=== PATIENT | male | born 1970 | race Two or more races ===

== ENCOUNTER 2016-10-16 17:53 | Emergency (ER) | payer OTHER ==
[~2016-10-16] VITALS: Ht 172.7 cm; Wt 81.6 kg
[2016-10-16 18:26] LABS: BASOPHILS % (AUTO) 0.5 % (0.0-2.0); DIFF TOTAL % 100 %; EOSINOPHILS # (AUTO) 0.1 /CMM (0.0-0.7); EOSINOPHILS % (AUTO) 1.8 % (0.0-6.0); HEMATOCRIT 43 % (39-51); HEMOGLOBIN 14.3 g/dL (13.5-17.5); LYMPHOCYTES # (AUTO) 2.3 /CMM (0.8-4.8); LYMPHOCYTES % (AUTO) 42.6 % (20.0-44.0); MEAN CORPUSCULAR HEMOGLOBIN 29 PG (26.0-33.0); MEAN CORPUSCULAR HGB CONC 33 g/dl (31.0-36.0); MEAN CORPUSCULAR VOLUME 86 fL (80-96); MONOCYTES # (AUTO) 0.4 /CMM (0.1-1.30); MONOCYTES % (AUTO) 7.6 % (2.0-12.0); NEUTROPHILS # (AUTO) 2.5 /CMM (1.8-8.9); NEUTROPHILS % (AUTO) 47.5 % (43.0-81.0); PLATELET COUNT (AUTO) 281 /CMM (150-450); RED BLOOD CELL COUNT(AUTO) 4.99 MIL/uL (4.5-6.0); WHITE BLOOD COUNT (AUTO) 5.4 K/uL (4.3-11.0)
[2016-10-16 18:35] LABS: KETONES,URINE Negative (NEGATIVE); LEUKOCYTE ESTERASE ,URINE Trace (NEGATIVE)
[2016-10-16 18:36] LABS: CALCIUM, SERUM 8.4 mg/dL (8.5-10.1); CREATININE 0.9 mg/dL (0.6-1.3); POTASSIUM 3.9 mmol/L (3.5-5.1)
[2016-10-16 18:37] LABS: ADD UA MICROSCOPIC YES
[2016-10-16 18:42] LABS: ALBUMIN 3.8 g/dL (3.4-5.0); BILIRUBIN,DIRECT 0.1 mg/dL (0.0-0.2); BILIRUBIN,TOTAL 0.4 mg/dL (0.2-1.0); INDIRECT BILIRUBIN 0.3 mg/dL (0.0-1.1)
[2016-10-16 19:09] LABS: RBC,URINE NONE SEEN /HPF (0-2); WBC,URINE 2-4/HPF /HPF (0-3)
[2016-10-16 19:10] LABS: ADD URINE CULTURE NO; MUCUS,URINE Few /LPF (None Seen)
[2016-10-16 20:09] VITALS: BP 108/64
== END 2016-10-16 20:10 | disposition home or self-care (01) ==
LOC: ER 17:54
DX: M54.5 Low back pain (principal); J06.9 Acute upper respiratory infection, unspecified; N20.0 Calculus of kidney; F17.210 Nicotine dependence, cigarettes, uncomplicated
CPT/HCPCS: 36415; 74176; 80048; 80076; 81001; 85025; 99285; A4606; Z7610; 81000-TC

== ENCOUNTER 2016-10-26 08:05 | Emergency (ER) | payer OTHER ==
[~2016-10-26] VITALS: Ht 172.7 cm; Wt 79.4 kg
[2016-10-26 08:22] VITALS: BP 125/86
== END 2016-10-26 08:23 | disposition home or self-care (01) ==
LOC: ER 08:07
DX: S29.011A Strain of muscle and tendon of front wall of thorax, initial encounter (principal); Z87.442 Personal history of urinary calculi; X58.XXXA Exposure to other specified factors, initial encounter; Y92.89 Other specified places as the place of occurrence of the external cause; Y93.89 Activity, other specified; Y99.8 Other external cause status
CPT/HCPCS: 99283; A4606; Z7610

== ENCOUNTER 2017-01-31 05:25 | Emergency (ER) | payer BC, OTHER ==
[~2017-01-31] VITALS: Ht 177.8 cm; Wt 83.9 kg
--- NOTE | 2017-01-31 05:35 | NUR ---
to bed 3 ambulatory c/o L flank pain x2 months. pt aaox4 no acute distress noted, resp, even and unlabored. pending er md tellez. pt unable to provide urine sample at this time.
--- NOTE | 2017-01-31 06:12 | NUR ---
chandrakant hedrick at bedside to rosalinda salguero.
[2017-01-31] MEDS ORDERED: HYDROCODONE/APAP 10/325MG 1 EA TABLET PO ONE (06:30)
[2017-01-31] MEDS ORDERED: ONDANSETRON 4 MG TAB.RAPDIS SL ONE (06:30)
--- NOTE | 2017-01-31 06:30 | NUR ---
blood drawn by director of student financial services.
[2017-01-31 06:41] LABS: BASOPHILS % (AUTO) 0.5 % (0.0-2.0); EOSINOPHILS # (AUTO) 0.1 /CMM (0.0-0.7); EOSINOPHILS % (AUTO) 2.4 % (0.0-6.0); HEMATOCRIT 44 % (39-51); HEMOGLOBIN 15.2 g/dL (13.5-17.5); LYMPHOCYTES # (AUTO) 2.1 /CMM (0.8-4.8); LYMPHOCYTES % (AUTO) 36.6 % (20.0-44.0); MEAN CORPUSCULAR HEMOGLOBIN 30 PG (26.0-33.0); MEAN CORPUSCULAR HGB CONC 35 g/dl (31.0-36.0); MEAN CORPUSCULAR VOLUME 86 fL (80-96); MONOCYTES # (AUTO) 0.6 /CMM (0.1-1.30); MONOCYTES % (AUTO) 10.5 % (2.0-12.0); NEUTROPHILS # (AUTO) 2.8 /CMM (1.8-8.9); PLATELET COUNT (AUTO) 235 /CMM (150-450); RDW COEFFICIENT OF VARIATION 12.5 (11.5-15.0); RED BLOOD CELL COUNT(AUTO) 5.16 MIL/uL (4.5-6.0); WHITE BLOOD COUNT (AUTO) 5.7 K/uL (4.3-11.0)
[2017-01-31] MEDS ORDERED: ONDANSETRON 4 MG TAB.RAPDIS ONE (06:59)
[2017-01-31] MEDS ORDERED: HYDROCODONE/APAP 10/325MG 1 EA TABLET ONE (07:00)
[2017-01-31 07:07] LABS: BILIRUBIN,DIRECT 0.1 mg/dL (0.0-0.2); BILIRUBIN,TOTAL 0.7 mg/dL (0.2-1.0); CALCIUM, SERUM 8.6 mg/dL (8.5-10.1); POTASSIUM 4.1 mmol/L (3.5-5.1); TOTAL PROTEIN, SERUM 7.3 g/dL (6.4-8.2)
--- NOTE | 2017-01-31 07:11 | NUR ---
urine sample collected and sent to lab.
[2017-01-31 07:25] LABS: APPEARANCE,URINE CLEAR (CLEAR); BILIRUBIN,URINE NEGATIVE (NEGATIVE); BLOOD, URINE NEGATIVE Ery/uL (NEGATIVE); KETONES,URINE NEGATIVE (NEGATIVE); LEUKOCYTE ESTERASE ,URINE NEGATIVE (NEGATIVE); NITRITE, URINE NEGATIVE (NEGATIVE); PH,URINE 5.5 (5.0-8.0); PROTEIN,URINE NEGATIVE (NEGATIVE); UGLUCOSE NEGATIVE (NEGATIVE); UROBILINOGEN,URINE 0.2 EU/dL (0.2)
[2017-01-31 07:26] LABS: COLOR,URINE Light yellow (YELLOW)
[2017-01-31 08:08] VITALS: BP 134/77
--- NOTE | 2017-01-31 08:08 | NUR ---
Patient discharged to home in stable condition. Written and verbal after care instructions given. Patient verbalizes understanding of instruction.
== END 2017-01-31 08:09 | disposition home or self-care (01) ==
LOC: ER 05:28
DX: R07.89 Other chest pain (principal); R10.32 Left lower quadrant pain; Z87.442 Personal history of urinary calculi
CPT/HCPCS: 36415; 71010-TC; 80048-TC; 80076-TC; 81000-TC; 83690-TC; 84484-TC; 85025-TC; A4606; Q0162; Z7610

== ENCOUNTER 2017-02-14 00:55 | Emergency (ER) | payer BC ==
[~2017-02-14] VITALS: Ht 175.3 cm; Wt 77.1 kg
[2017-02-14 01:00] VITALS: BP 125/91
[2017-02-14] MEDS ORDERED: ONDANSETRON 4 MG TAB.RAPDIS SL ONE (01:30)
[2017-02-14] MEDS ORDERED: oxyCODONE/APAP (5/325 MG) 1 UDTAB TABLET PO ONE (01:30)
== END 2017-02-14 01:31 | disposition home or self-care (01) ==
LOC: ER 00:55
DX: R10.32 Left lower quadrant pain (principal); G89.29 Other chronic pain; Z87.442 Personal history of urinary calculi
CPT/HCPCS: Z7610

== ENCOUNTER 2017-03-24 22:40 | Emergency (ER) | payer BC ==
[~2017-03-24] VITALS: Ht 172.7 cm; Wt 79.4 kg
[2017-03-25] MEDS ORDERED: MAG HYDROX/AL HYDROX/SIMETH 30 ML UDC ONE (00:58)
--- NOTE | 2017-03-25 00:58 | NUR ---
PT FROM HOME W/ CO CRUSHIG EPIGASTRIC PAIN OF 5.10. STATES THAT HE HAS N/V SINCE 2 NIGHTS AGO. DRANK TEQUILLA FOR "COUPLE OF DAYS". LAST DRINK WAS 2 NIGHTS AGO. A/OX4. ELLI. AWAITNG RUTHIE VIRGEN FOR EVALUATION.
[2017-03-25] MEDS ORDERED: IV NS 0.9% 1,000 ML ONE (00:59)
[2017-03-25] MEDS ORDERED: IV SET PRIMARY 1 EA INFUS.SET MC ONE (00:59)
[2017-03-25] MEDS ORDERED: LIDOCAINE VISCOUS 2% UD 15 ML UDC ONE (00:59)
[2017-03-25] MEDS ORDERED: ONDANSETRON HCL/PF 4 MG/2 ML VIAL ONE (00:59)
[2017-03-25] MEDS ORDERED: MAG HYDROX/AL HYDROX/SIMETH 30 ML UDC PO ONE (01:00)
[2017-03-25] MEDS ORDERED: LIDOCAINE VISCOUS 2% UD 15 ML UDC MM ONE (01:00)
[2017-03-25] MEDS ORDERED: IV NS 0.9% 1,000 ML BAG IV ONE (01:00)
[2017-03-25] MEDS ORDERED: ONDANSETRON HCL/PF 4 MG/2 ML VIAL IVP ONE (01:00)
[2017-03-25 01:31] LABS: HEMATOCRIT 48 % (39-51); HEMOGLOBIN 16.3 g/dL (13.5-17.5); LYMPHOCYTES % (AUTO) 30.1 % (20.0-44.0); MEAN CORPUSCULAR HEMOGLOBIN 30 PG (26.0-33.0); MEAN CORPUSCULAR HGB CONC 34 g/dl (31.0-36.0); MEAN CORPUSCULAR VOLUME 86 fL (80-96); MONOCYTES % (AUTO) 9.9 % (2.0-12.0); NEUTROPHILS % (AUTO) 58.9 % (43.0-81.0); PLATELET COUNT (AUTO) 277 /CMM (150-450); RDW COEFFICIENT OF VARIATION 12.1 (11.5-15.0); RED BLOOD CELL COUNT(AUTO) 5.51 MIL/uL (4.5-6.0); WHITE BLOOD COUNT (AUTO) 7.4 K/uL (4.3-11.0)
[2017-03-25 01:32] LABS: BASOPHILS % (AUTO) 0.1 % (0.0-2.0)
[2017-03-25 01:39] LABS: CALCIUM, SERUM 8.9 mg/dL (8.5-10.1); CREATININE 0.8 mg/dL (0.6-1.3); POTASSIUM 3.5 mmol/L (3.5-5.1)
[2017-03-25 01:47] LABS: ALBUMIN 4.4 g/dL (3.4-5.0); BILIRUBIN,DIRECT 0.2 mg/dL (0.0-0.2); BILIRUBIN,TOTAL 1.1 mg/dL (0.2-1.0); TOTAL PROTEIN, SERUM 7.7 g/dL (6.4-8.2)
--- NOTE | 2017-03-25 03:23 | NUR ---
Patient discharged to home in stable condition. Written and verbal after care instructions given. Patient verbalizes understanding of instruction. IV removed. Catheter intact and site benign. Pressure and 4x4 applied to site. No bleeding noted.
[2017-03-25 03:25] VITALS: BP 159/105
== END 2017-03-25 03:25 | disposition home or self-care (01) ==
LOC: ER 22:43
DX: R10.9 Unspecified abdominal pain (principal); F17.210 Nicotine dependence, cigarettes, uncomplicated; Z87.442 Personal history of urinary calculi
CPT/HCPCS: 36415; 71010; 80048; 80076; 83690; 85025; 93005; 96361; 96374; 99285; A4606; J2405; J7030; Z7610

== ENCOUNTER 2017-05-09 10:47 | Emergency (ER) | payer BC ==
[~2017-05-09] VITALS: Ht 172.7 cm; Wt 77.1 kg
--- NOTE | 2017-05-09 11:00 | NUR ---
PT AMBULATORY TO ER BED 14. HERE FOR NAUSEA AND VOMITING THAT STARTED THIS MORNING. UPON ASSESSMENT PT STARTED C/O PRESSURE LIKE NON RADIATING CHEST PAIN. GOWNED AND PLACED ON MONITOR. AWAITING MD MONTERO.
--- NOTE | 2017-05-09 11:20 | NUR ---
DR ROCHA AT BEDSIDE FOR EVAL.
[2017-05-09] MEDS ORDERED: ONDANSETRON HCL/PF 4 MG/2 ML VIAL IVP ONE (11:30)
[2017-05-09] MEDS ORDERED: IV NS 0.9% 1,000 ML BAG IV ONE (11:30)
[2017-05-09] MEDS ORDERED: ONDANSETRON HCL/PF 4 MG/2 ML VIAL ONE (11:34)
[2017-05-09 11:36] LABS: BASOPHILS # (AUTO) 0.1 /CMM (0.0-0.2); BASOPHILS % (AUTO) 1.7 % (0.0-2.0); EOSINOPHILS % (AUTO) 0.3 % (0.0-6.0); HEMATOCRIT 50 % (39-51); HEMOGLOBIN 16.9 g/dL (13.5-17.5); LYMPHOCYTES # (AUTO) 1.2 /CMM (0.8-4.8); LYMPHOCYTES % (AUTO) 16.7 % (20.0-44.0); MEAN CORPUSCULAR HEMOGLOBIN 29 PG (26.0-33.0); MEAN CORPUSCULAR HGB CONC 34 g/dl (31.0-36.0); MEAN CORPUSCULAR VOLUME 87 fL (80-96); MONOCYTES # (AUTO) 0.3 /CMM (0.1-1.30); MONOCYTES % (AUTO) 3.6 % (2.0-12.0); NEUTROPHILS # (AUTO) 5.6 /CMM (1.8-8.9); NEUTROPHILS % (AUTO) 77.7 % (43.0-81.0); PLATELET COUNT (AUTO) 278 /CMM (150-450); RDW COEFFICIENT OF VARIATION 11.9 (11.5-15.0); RED BLOOD CELL COUNT(AUTO) 5.75 MIL/uL (4.5-6.0); WHITE BLOOD COUNT (AUTO) 7.2 K/uL (4.3-11.0)
--- NOTE | 2017-05-09 11:42 | NUR ---
RADIOLOGY AT BEDSIDE FOR CHEST XRAY
[2017-05-09 11:44] LABS: CALCIUM, SERUM 8.9 mg/dL (8.5-10.1); CARBON DIOXIDE 25 mmol/L (21-32); CHLORIDE 102 mmol/L (98-107); CREATININE 0.9 mg/dL (0.6-1.3); GLUCOSE 102 mg/dL (74-106); POTASSIUM 3.6 mmol/L (3.5-5.1); SODIUM SERUM 140 mmol/L (136-145); UREA NITROGEN, BLOOD 17 mg/dL (7-18)
[2017-05-09 11:52] LABS: TROPONIN I < 0.017 ng/mL (0.00-0.056)
[2017-05-09 11:59] LABS: ALANINE AMINOTRANSFERASE 54 U/L (12-78); ALBUMIN 4.4 g/dL (3.4-5.0); ALKALINE PHOSPHATASE 102 U/L (46-116); ASPARTATE AMINOTRANSFERASE 29 U/L (15-37); BILIRUBIN,DIRECT 0.1 mg/dL (0.0-0.2); BILIRUBIN,TOTAL 0.5 mg/dL (0.2-1.0); LIPASE 139 U/L (73-393); TOTAL PROTEIN, SERUM 7.7 g/dL (6.4-8.2)
--- NOTE | 2017-05-09 12:56 | NUR ---
Patient discharged to home in stable condition. Written and verbal after care instructions given. Patient verbalizes understanding of instruction.IV removed. Catheter intact and site benign. Pressure and 4x4 applied to site. No bleeding noted.
[2017-05-09 12:57] VITALS: BP 145/76
== END 2017-05-09 12:58 | disposition home or self-care (01) ==
LOC: ER 10:48
DX: R07.89 Other chest pain (principal); R11.10 Vomiting, unspecified; F17.210 Nicotine dependence, cigarettes, uncomplicated; Z87.442 Personal history of urinary calculi
CPT/HCPCS: 36415; 71010; 80048; 80076; 83690; 84484; 85025; 93005; 96374; 99285; A4606; J2405; J7030 ×2; Z7610

== ENCOUNTER 2017-09-22 21:37 | Emergency (ER) | payer BC ==
--- NOTE | 2017-09-22 22:00 | NUR ---
CALLED PT IN [place], NO RESPONSE
--- NOTE | 2017-09-22 22:45 | NUR ---
CALLED PT IN [place], NO RESPONSE
--- NOTE | 2017-09-22 23:11 | NUR ---
CALLED PT IN [place], NO RESPONSE
== END 2017-09-22 23:14 | disposition left against medical advice (07) ==
LOC: ER 21:39
DX: Z53.21 Procedure and treatment not carried out due to patient leaving prior to being seen by health care provider (principal)

== ENCOUNTER 2018-02-12 20:23 | Emergency (ER) | payer BC, OTHER ==
[~2018-02-12] VITALS: Ht 175.3 cm; Wt 79.4 kg
--- NOTE | 2018-02-12 20:37 | NUR ---
to bed 10 ambulatory c/o nonradiating L sided chest pain, n/v/d haris. pt aaox4 no acute distress noted, resp even and unlaborewd. place pt on cardiac monitoring, continuous pox. pending er md tellez.
--- NOTE | 2018-02-12 20:47 | NUR ---
chandrakant hedrick at bedside to rosalinda salguero.
[2018-02-12] MEDS ORDERED: IV NS 0.9% 1,000 ML BAG IV ONE (21:00)
[2018-02-12] MEDS ORDERED: ONDANSETRON HCL/PF 4 MG/2 ML VIAL IVP ONE (21:00)
[2018-02-12] MEDS ORDERED: KETOROLAC TROMETHAMINE INJ 30 MG/ML VIAL IV ONE (21:00)
[2018-02-12] MEDS ORDERED: KETOROLAC TROMETHAMINE INJ 30 MG/ML VIAL ONE (21:03)
[2018-02-12] MEDS ORDERED: ONDANSETRON HCL/PF 4 MG/2 ML VIAL ONE (21:03)
[2018-02-12 21:04] LABS: BASOPHILS % (AUTO) 0.6 % (0.0-2.0); EOSINOPHILS % (AUTO) 1.5 % (0.0-6.0); HEMATOCRIT 46 % (39-51); LYMPHOCYTES # (AUTO) 2.2 /CMM (0.8-4.8); LYMPHOCYTES % (AUTO) 29.9 % (20.0-44.0); MEAN CORPUSCULAR HGB CONC 35 g/dl (31.0-36.0); MEAN CORPUSCULAR VOLUME 83 fL (80-96); MONOCYTES # (AUTO) 0.6 /CMM (0.1-1.30); MONOCYTES % (AUTO) 8.2 % (2.0-12.0); NEUTROPHILS # (AUTO) 4.5 /CMM (1.8-8.9); NEUTROPHILS % (AUTO) 59.8 % (43.0-81.0); PLATELET COUNT (AUTO) 272 /CMM (150-450); RDW COEFFICIENT OF VARIATION 13.3 (11.5-15.0); RED BLOOD CELL COUNT(AUTO) 5.53 MIL/uL (4.5-6.0); WHITE BLOOD COUNT (AUTO) 7.4 K/uL (4.3-11.0)
--- NOTE | 2018-02-12 21:09 | NUR ---
WASTED TORADOL O.5ML FOR TOTAL OF 15MG IVP. VERIFIED WITH ED
[2018-02-12 21:16] LABS: CALCIUM, SERUM 8.6 mg/dL (8.5-10.1); POTASSIUM 3.7 mmol/L (3.5-5.1)
[2018-02-12 21:22] LABS: ALBUMIN 4.1 g/dL (3.4-5.0); BILIRUBIN,DIRECT 0.1 mg/dL (0.0-0.2); BILIRUBIN,TOTAL 0.5 mg/dL (0.2-1.0); TOTAL PROTEIN, SERUM 7.3 g/dL (6.4-8.2)
[2018-02-12 22:16] VITALS: BP 156/99
--- NOTE | 2018-02-12 22:16 | NUR ---
IV removed. Catheter intact and site benign. Pressure and 4x4 applied to site. No bleeding noted. Patient discharged to home in stable condition. Written and verbal after care instructions given. Patient verbalizes understanding of instruction. ambulatory with a steady gait noted. pt s/o at bedside to take pt home.
[2018-06-06] MEDS ORDERED: AMLO5TAB7 PO (05:08)
[2018-06-06] MEDS ORDERED: CLON0.1T PO (05:08)
[2018-06-06] MEDS ORDERED: LOSA100T15 PO (05:08)
[2018-06-07] MEDS ORDERED: ATOR10TA PO (12:37)
== END 2018-02-12 22:30 | disposition home or self-care (01) ==
LOC: ER 20:25
DX: R11.2 Nausea with vomiting, unspecified (principal); R19.7 Diarrhea, unspecified; E86.0 Dehydration; F10.10 Alcohol abuse, uncomplicated; F17.210 Nicotine dependence, cigarettes, uncomplicated; Z87.442 Personal history of urinary calculi
CPT/HCPCS: 36415; 80048-TC; 80076-TC; 83690-TC; 85025-TC; A4606; J1885; J2405; J7030; Z7610

== ENCOUNTER 2018-03-06 08:49 | Inpatient (IN) | payer OTHER ==
[~2018-03-06] VITALS: Ht 172.7 cm; Wt 80.3 kg
[2018-03-06] MEDS ORDERED: ASPIRIN 325 MG TABLET PO ONE (09:00)
--- NOTE | 2018-03-06 09:00 | NUR ---
PT CAME IN WITH C/O CHEST PAIN 5/10, CHILLS SINCE THIS AM. NAD NOTED. VSS. SEEN BY MD FOR EVAL. SAFETY AND COMFORT MEASURES PROVIDED. WILL MONITOR.
[2018-03-06] MEDS ORDERED: ASPIRIN 325 MG TABLET ONE (09:06)
[2018-03-06 09:14] LABS: BASOPHILS % (AUTO) 0.6 % (0.0-2.0); EOSINOPHILS % (AUTO) 0.9 % (0.0-6.0); HEMATOCRIT 46 % (39-51); HEMOGLOBIN 16.1 g/dL (13.5-17.5); LYMPHOCYTES # (AUTO) 1.4 /CMM (0.8-4.8); MEAN CORPUSCULAR HGB CONC 35 g/dl (31.0-36.0); MEAN CORPUSCULAR VOLUME 83 fL (80-96); MONOCYTES # (AUTO) 0.4 /CMM (0.1-1.30); MONOCYTES % (AUTO) 8.4 % (2.0-12.0); NEUTROPHILS # (AUTO) 3.3 /CMM (1.8-8.9); NEUTROPHILS % (AUTO) 62.1 % (43.0-81.0); PLATELET COUNT (AUTO) 257 /CMM (150-450); RED BLOOD CELL COUNT(AUTO) 5.51 MIL/uL (4.5-6.0); WHITE BLOOD COUNT (AUTO) 5.1 K/uL (4.3-11.0)
--- NOTE | 2018-03-06 09:16 | NUR ---
IV ACCESS STARTED. BLOOD DRAWN FOR LABS.
[2018-03-06 09:26] LABS: CALCIUM, SERUM 8.8 mg/dL (8.5-10.1); CARBON DIOXIDE 25 mmol/L (21-32); CHLORIDE 102 mmol/L (98-107); CREATININE 0.8 mg/dL (0.6-1.3); GLUCOSE 104 mg/dL (74-106); POTASSIUM 3.7 mmol/L (3.5-5.1); SODIUM SERUM 136 mmol/L (136-145); UREA NITROGEN, BLOOD 18 mg/dL (7-18)
[2018-03-06 09:29] LABS: TROPONIN I < 0.017 ng/mL (0.00-0.056)
[2018-03-06] MEDS ORDERED: ALPR0.255 PO (09:44)
[2018-03-06] MEDS ORDERED: GABA-532 PO (09:44)
[2018-03-06] MEDS ORDERED: IBUP-1957 PO (09:44)
[2018-03-06] MEDS ORDERED: HYDR-3980 PO (09:44)
[2018-03-06] MEDS ORDERED: ERGO500014 PO (09:44)
[2018-03-06] MEDS ORDERED: OMEP40CA37 PO (09:44)
[2018-03-06] MEDS ORDERED: ZOLPIDEM TARTRATE 5 MG TABLET PO PRN (10:00)
[2018-03-06] MEDS ORDERED: HYDROCODONE/APAP 5/325MG 1 EACH TABLET PO PRN (10:00)
[2018-03-06] MEDS ORDERED: Z GUARD REMEDY 2 OZ OINT TP PRN (10:00)
[2018-03-06] MEDS ORDERED: HYDROCODONE/APAP 10/325MG 1 EA TABLET PO PRN (10:00)
[2018-03-06] MEDS ORDERED: ERGOCALCIFEROL (VITAMIN D 2) 50,000 UNIT CAPSULE PO SCH (10:00)
[2018-03-06] MEDS ORDERED: ONDANSETRON HCL/PF 4 MG/2 ML VIAL IVP PRN (10:00)
[2018-03-06] MEDS ORDERED: MORPHINE SULFATE INJ 2 MG/ML DISP.SYRIN IV PRN (10:00)
[2018-03-06] MEDS ORDERED: MAG HYDROX/AL HYDROX/SIMETH 30 ML UDC PO PRN (10:00)
[2018-03-06] MEDS ORDERED: ACETAMINOPHEN 325 MG TABLET PO PRN (10:00)
[2018-03-06] MEDS ORDERED: MAGNESIUM HYDROXIDE 30 ML UDC PO PRN (10:00)
[2018-03-06] MEDS ORDERED: ALPRAZOLAM 0.25 MG TABLET PO PRN (10:00)
--- NOTE | 2018-03-06 10:26 | NUR ---
DR. MAYER AT BS.
--- NOTE | 2018-03-06 10:31 | NUR ---
REPORT GIVEN TO ZEE GAO RN TELE [phone]
[2018-03-06 10:45] VITALS: BP 137/81
--- NOTE | 2018-03-06 10:45 | NUR ---
supervisor telephone clerksfabric pattern grader notes Admitted a 47 years old male patient who came in due to Chest pain via gurney accompanied by ER nurse. patient is alert and oriented x 4, verbally responsive and able to make needs known. No complaint of pain or discomfort at this time, seen by Dr. George (storage administrator). Dr. Giang already seen the patient in the ER and orders filled in the patient profile. Skin assessment done and no skin issues noted, skin intact. Tele monitor attached to patient with SR. IV intact and patent. Kept patient comfortable in bed, call light with in patient reach, will continue to monitor.
[2018-03-06 11:00] VITALS: BP 137/95
--- NOTE | 2018-03-06 11:45 | NUR ---
telephone messenger notes Patient verbalized that he wants to leave against medical advice, per patient his is not feeling well at home and he needs to be there to take care of her. Informed Dr. Giang about patient wants to leave AMA and made aware, per MD okay to leave AMA. Explained the risk and benefits to the patient x 3 and able to understand. Patient signed AMA form and filed in the chart. Patient left the hospital via ambulatory and tolerated well. MD and charge nurse made aware.
[2018-03-06] MEDS ORDERED: GABAPENTIN 100 MG CAPSULE PO SCH (13:00)
[2018-03-06] MEDS ORDERED: NITROGLYCERIN PACKET 1 GM PACKET TOP SCH (13:00)
[2018-03-07] MEDS ORDERED: PANTOPRAZOLE 40 MG TABLET.DR PO SCH (07:30)
[2018-03-07] MEDS ORDERED: ASPIRIN 325 MG TABLET PO SCH (09:00)
[2018-06-06] MEDS ORDERED: LOSA100T15 PO (05:08)
[2018-06-06] MEDS ORDERED: CLON0.1T PO (05:08)
[2018-06-06] MEDS ORDERED: AMLO5TAB7 PO (05:08)
[2018-06-07] MEDS ORDERED: ATOR10TA PO (12:37)
== END 2018-03-06 11:45 | disposition left against medical advice (07) | DRG 206 ==
LOC: ER 08:52 → TELE1 10:29
PROVIDERS: ADMIT Internal Medicine; ATTEND Internal Medicine
DX: M94.0 Chondrocostal junction syndrome [Tietze] (principal); N20.0 Calculus of kidney; Z79.899 Other long term (current) drug therapy; F41.9 Anxiety disorder, unspecified; F17.200 Nicotine dependence, unspecified, uncomplicated; K21.9 Gastro-esophageal reflux disease without esophagitis
CPT/HCPCS: 36415; 71045-TC; 80048-TC; 84484-TC; 85025-TC; A4606; Z7610

== ENCOUNTER 2018-03-07 00:14 | Inpatient (IN) | payer OTHER ==
[~2018-03-07] VITALS: Ht 172.7 cm; Wt 78.9 kg
[~2018-03-07 00:14] MED LIST: ALPR0.255 PO; ERGO500014 PO; GABA-532 PO; HYDR-3980 PO; IBUP-1957 PO; OMEP40CA37 PO
[2018-03-07] MEDS ORDERED: IV NS 0.9% 500 ML BAG IV ONE (00:30)
[2018-03-07] MEDS ORDERED: ONDANSETRON HCL/PF 4 MG/2 ML VIAL IVP ONE (00:30)
[2018-03-07] MEDS ORDERED: ASPIRIN 81 MG TAB.CHEW PO ONE (00:30)
[2018-03-07] MEDS ORDERED: MORPHINE SULFATE INJ 2 MG/ML DISP.SYRIN IV ONE (00:30)
[2018-03-07] MEDS ORDERED: MORPHINE SULFATE INJ 2 MG/ML DISP.SYRIN ONE (00:37)
[2018-03-07] MEDS ORDERED: ONDANSETRON HCL/PF 4 MG/2 ML VIAL ONE (00:37)
[2018-03-07] MEDS ORDERED: ASPIRIN 81 MG TAB.CHEW ONE (00:37)
[2018-03-07 00:42] LABS: BASOPHILS # (AUTO) 0.1 /CMM (0.0-0.2); BASOPHILS % (AUTO) 0.8 % (0.0-2.0); EOSINOPHILS % (AUTO) 1.4 % (0.0-6.0); HEMATOCRIT 48 % (39-51); HEMOGLOBIN 16.4 g/dL (13.5-17.5); LYMPHOCYTES # (AUTO) 2.6 /CMM (0.8-4.8); LYMPHOCYTES % (AUTO) 40.4 % (20.0-44.0); MEAN CORPUSCULAR HGB CONC 34 g/dl (31.0-36.0); MEAN CORPUSCULAR VOLUME 87 fL (80-96); MONOCYTES # (AUTO) 0.6 /CMM (0.1-1.30); MONOCYTES % (AUTO) 10.2 % (2.0-12.0); NEUTROPHILS % (AUTO) 47.2 % (43.0-81.0); PLATELET COUNT (AUTO) 273 /CMM (150-450); RDW COEFFICIENT OF VARIATION 13.8 (11.5-15.0); RED BLOOD CELL COUNT(AUTO) 5.52 MIL/uL (4.5-6.0); WHITE BLOOD COUNT (AUTO) 6.3 K/uL (4.3-11.0)
[2018-03-07 00:57] LABS: INR 0.96 (0.87-1.13)
[2018-03-07 01:00] LABS: TROPONIN I < 0.017 ng/mL (0.00-0.056)
[2018-03-07 01:10] LABS: CALCIUM, SERUM 8.9 mg/dL (8.5-10.1); CARBON DIOXIDE 24 mmol/L (21-32); CHLORIDE 102 mmol/L (98-107); CREATININE 0.9 mg/dL (0.6-1.3); GLUCOSE 104 mg/dL (74-106); POTASSIUM 3.5 mmol/L (3.5-5.1); SODIUM SERUM 140 mmol/L (136-145); UREA NITROGEN, BLOOD 14 mg/dL (7-18)
[2018-03-07 01:16] LABS: ALANINE AMINOTRANSFERASE 50 U/L (12-78); ALBUMIN 4.4 g/dL (3.4-5.0); ALKALINE PHOSPHATASE 85 U/L (46-116); ASPARTATE AMINOTRANSFERASE 28 U/L (15-37); BILIRUBIN,DIRECT 0.2 mg/dL (0.0-0.2); BILIRUBIN,TOTAL 1.2 mg/dL (0.2-1.0); TOTAL PROTEIN, SERUM 7.9 g/dL (6.4-8.2)
[2018-03-07 04:25] VITALS: BP 127/82
[2018-03-07 04:30] VITALS: BP 127/22
[2018-03-07] MEDS ORDERED: ALPRAZOLAM 0.25 MG TABLET PO PRN (05:00)
[2018-03-07] MEDS ORDERED: ERGOCALCIFEROL (VITAMIN D 2) 50,000 UNIT CAPSULE PO SCH (05:00)
[2018-03-07] MEDS ORDERED: ACETAMINOPHEN 325 MG TABLET PO PRN (05:30)
[2018-03-07] MEDS ORDERED: MORPHINE SULFATE INJ 2 MG/ML DISP.SYRIN IV PRN (05:30)
[2018-03-07] MEDS ORDERED: ONDANSETRON HCL/PF 4 MG/2 ML VIAL IVP PRN (05:30)
[2018-03-07] MEDS ORDERED: Z GUARD REMEDY 2 OZ OINT TP PRN (05:30)
[2018-03-07] MEDS ORDERED: ZOLPIDEM TARTRATE 5 MG TABLET PO PRN (05:30)
[2018-03-07] MEDS ORDERED: MAGNESIUM HYDROXIDE 30 ML UDC PO PRN (05:30)
[2018-03-07 06:02] LABS: BASOPHILS % (AUTO) 0.4 % (0.0-2.0); EOSINOPHILS % (AUTO) 1.4 % (0.0-6.0); HEMATOCRIT 46 % (39-51); HEMOGLOBIN 15.7 g/dL (13.5-17.5); LYMPHOCYTES % (AUTO) 33.3 % (20.0-44.0); MEAN CORPUSCULAR HGB CONC 35 g/dl (31.0-36.0); MEAN CORPUSCULAR VOLUME 86 fL (80-96); MONOCYTES # (AUTO) 0.6 /CMM (0.1-1.30); MONOCYTES % (AUTO) 10.2 % (2.0-12.0); NEUTROPHILS # (AUTO) 3.3 /CMM (1.8-8.9); NEUTROPHILS % (AUTO) 54.7 % (43.0-81.0); PLATELET COUNT (AUTO) 253 /CMM (150-450); RDW COEFFICIENT OF VARIATION 13.6 (11.5-15.0); RED BLOOD CELL COUNT(AUTO) 5.28 MIL/uL (4.5-6.0)
[2018-03-07 06:18] LABS: TROPONIN I < 0.017 ng/mL (0.00-0.056)
[2018-03-07 06:21] LABS: CALCIUM, SERUM 8.7 mg/dL (8.5-10.1); CARBON DIOXIDE 26 mmol/L (21-32); CHLORIDE 104 mmol/L (98-107); CREATININE 0.9 mg/dL (0.6-1.3); GLUCOSE 95 mg/dL (74-106); MAGNESIUM 2.2 mg/dL (1.8-2.4); PHOSPHORUS 4.1 mg/dL (2.5-4.9); POTASSIUM 3.5 mmol/L (3.5-5.1); SODIUM SERUM 141 mmol/L (136-145); UREA NITROGEN, BLOOD 16 mg/dL (7-18)
[2018-03-07 08:00] VITALS: BP 117/67
[2018-03-07] MEDS ORDERED: MORPHINE SULFATE INJ 4 MG/ML DISP.SYRIN IV PRN (09:00)
[2018-03-07] MEDS ORDERED: ASPIRIN EC 81 MG TABLET.DR PO SCH (09:00)
[2018-03-07] MEDS ORDERED: NICOTINE PATCH (21MG) 21 MG PATCH.TD24 TD SCH (09:00)
[2018-03-07] MEDS ORDERED: ENOXAPARIN SODIUM 40 MG/0.4 ML DISP.SYRIN SQ SCH (09:00)
[2018-03-07] MEDS: GABAPENTIN 100 MG CAPSULE PO SCH ×2 (09:04→12:39)
[2018-03-07 12:00] VITALS: BP 126/75
[2018-03-07] MEDS ORDERED: METOPROLOL TARTRATE 50 MG TABLET PO SCH (12:00)
[2018-03-07] MEDS ORDERED: IOHEXOL-350 100 ML VIAL IV ONE (14:38)
[2018-03-07] MEDS ORDERED: METOPROLOL TARTRATE INJ 5 MG/5 ML AMPUL ONE (14:39)
[2018-03-07] MEDS ORDERED: ATORVASTATIN 10 MG TABLET PO SCH (22:00)
[2018-06-06] MEDS ORDERED: CLON0.1T PO (05:08)
[2018-06-06] MEDS ORDERED: AMLO5TAB7 PO (05:08)
[2018-06-06] MEDS ORDERED: LOSA100T15 PO (05:08)
[2018-06-07] MEDS ORDERED: ATOR10TA PO (12:37)
== END 2018-03-07 17:03 | disposition home or self-care (01) | DRG 206 ==
LOC: ER 00:16 → TELE 04:17 → MED 08:39
PROVIDERS: ADMIT Nurse Practitioner Acute Care; ATTEND Nurse Practitioner Acute Care
DX: M94.0 Chondrocostal junction syndrome [Tietze] (principal); Z87.442 Personal history of urinary calculi; Z79.899 Other long term (current) drug therapy; F41.9 Anxiety disorder, unspecified; K21.9 Gastro-esophageal reflux disease without esophagitis; F17.200 Nicotine dependence, unspecified, uncomplicated; X50.0XXA Overexertion from strenuous movement or load, initial encounter; Y92.9 Unspecified place or not applicable
CPT/HCPCS: 36415; 71045-TC; 75574; 80048-TC; 80076-TC; 82962-TC; 83735-TC; 84100-TC; 84484-TC; 85025-TC; 85730-TC; 87081-TC; A4606; J1650; J2270; J2405; J3490; J7030; J7040; Q9967; Z7610

== ENCOUNTER 2018-03-21 20:57 | Emergency (ER) | payer OTHER ==
[~2018-03-21] VITALS: Ht 172.7 cm; Wt 79.4 kg
[2018-03-21 21:03] VITALS: BP 148/112
--- NOTE | 2018-03-21 21:30 | NUR ---
PT CALLED IN WAITING AREA, NO ANSWER.
--- NOTE | 2018-03-21 21:47 | NUR ---
CALLED PT IN WAITING AREA, NO ANSWER.
--- NOTE | 2018-03-21 21:59 | NUR ---
PT CALLED IN WAITING AREA, NO ANSWER.
[2018-06-06] MEDS ORDERED: CLON0.1T PO (05:08)
[2018-06-06] MEDS ORDERED: LOSA100T15 PO (05:08)
[2018-06-06] MEDS ORDERED: AMLO5TAB7 PO (05:08)
[2018-06-07] MEDS ORDERED: ATOR10TA PO (12:37)
== END 2018-03-21 22:01 | disposition left against medical advice (07) ==
LOC: ER 20:59
DX: R10.9 Unspecified abdominal pain (principal); R07.9 Chest pain, unspecified; Z87.442 Personal history of urinary calculi; Z53.21 Procedure and treatment not carried out due to patient leaving prior to being seen by health care provider
CPT/HCPCS: A4606; Z7610

== ENCOUNTER 2018-03-29 09:11 | Emergency (ER) | payer OTHER ==
[~2018-03-29] VITALS: Ht 175.3 cm; Wt 79.4 kg
[2018-03-29 09:17] VITALS: BP 157/72
== END 2018-03-29 09:32 | disposition home or self-care (01) ==
LOC: ER 09:13
DX: T70.0XXA Otitic barotrauma, initial encounter (principal); Z87.442 Personal history of urinary calculi; W16.512A Jumping or diving into swimming pool striking water surface causing other injury, initial encounter
CPT/HCPCS: A4606; Z7610

== ENCOUNTER 2018-05-09 04:32 | Emergency (ER) | payer OTHER ==
[~2018-05-09] VITALS: Ht 175.3 cm; Wt 79.4 kg
[2018-05-09 04:38] VITALS: BP 129/79
[2018-05-09] MEDS ORDERED: IBUPROFEN 400 MG TABLET ONE (05:19)
[2018-05-09] MEDS ORDERED: IBUPROFEN 400 MG TABLET PO ONE (05:30)
== END 2018-05-09 05:22 | disposition home or self-care (01) ==
LOC: ER 04:34
DX: S70.12XA Contusion of left thigh, initial encounter (principal); F10.10 Alcohol abuse, uncomplicated; F12.10 Cannabis abuse, uncomplicated; Y90.9 Presence of alcohol in blood, level not specified; Z87.442 Personal history of urinary calculi; W01.198A Fall on same level from slipping, tripping and stumbling with subsequent striking against other object, initial encounter; Y93.01 Activity, walking, marching and hiking; Y92.480 Sidewalk as the place of occurrence of the external cause; Y99.8 Other external cause status
CPT/HCPCS: 73552; 99284; A4606; Z7610

== ENCOUNTER 2018-07-12 02:36 | Emergency (ER) | payer OTHER ==
[~2018-07-12] VITALS: Ht 175.3 cm; Wt 77.1 kg
[~2018-07-12 02:36] MED LIST changes: -ALPR0.255 PO; +AMLO5TAB7 PO; +ATOR10TA PO; +CLON0.1T PO; -ERGO500014 PO; -GABA-532 PO; -HYDR-3980 PO; -IBUP-1957 PO; -OMEP40CA37 PO
[2018-07-12] MEDS ORDERED: ASPIRIN 81 MG TAB.CHEW ONE (03:00)
[2018-07-12] MEDS ORDERED: ASPIRIN 81 MG TAB.CHEW PO ONE (03:00)
--- NOTE | 2018-07-12 03:00 | NUR ---
BBSELF FROM HOME C/C LEFT SIDE CP X 2 HRS QUALITY CONTROL TECH RAW MATERIALS NON RADIATING W/ +DIZZINESS, -N/V. SKIN WNL. PT IS AAOX4. NO S/S OF ACUTE DISTRESS NOTED. RR EVEN AND UNLABORED. PT PLACED ON GLOBAL PROCESS OWNER AND POX. PT SAFETY AND COMFORT MEASURES IN PLACE.
[2018-07-12 03:02] LABS: BASOPHILS % (AUTO) 0.5 % (0.0-2.0); EOSINOPHILS % (AUTO) 2.2 % (0.0-6.0); HEMATOCRIT 43 % (39-51); HEMOGLOBIN 14.6 g/dL (13.5-17.5); LYMPHOCYTES # (AUTO) 1.9 /CMM (0.8-4.8); LYMPHOCYTES % (AUTO) 27.6 % (20.0-44.0); MEAN CORPUSCULAR HGB CONC 34 g/dl (31.0-36.0); MEAN CORPUSCULAR VOLUME 88 fL (80-96); MONOCYTES # (AUTO) 0.6 /CMM (0.1-1.30); MONOCYTES % (AUTO) 8.8 % (2.0-12.0); NEUTROPHILS # (AUTO) 4.1 /CMM (1.8-8.9); NEUTROPHILS % (AUTO) 60.9 % (43.0-81.0); PLATELET COUNT (AUTO) 244 /CMM (150-450); RDW COEFFICIENT OF VARIATION 12.4 (11.5-15.0); RED BLOOD CELL COUNT(AUTO) 4.92 MIL/uL (4.5-6.0); WHITE BLOOD COUNT (AUTO) 6.7 K/uL (4.3-11.0)
[2018-07-12 03:17] LABS: INR 0.92 (0.87-1.13)
[2018-07-12 03:19] LABS: CALCIUM, SERUM 8.9 mg/dL (8.5-10.1); CARBON DIOXIDE 27 mmol/L (21-32); CHLORIDE 102 mmol/L (98-107); CREATININE 0.8 mg/dL (0.6-1.3); GLUCOSE 99 mg/dL (74-106); SODIUM SERUM 138 mmol/L (136-145); UREA NITROGEN, BLOOD 17 mg/dL (7-18)
[2018-07-12 03:26] LABS: TROPONIN I < 0.017 ng/mL (0.00-0.056)
[2018-07-12 03:55] VITALS: BP 130/77
== END 2018-07-12 03:56 | disposition home or self-care (01) ==
LOC: ER 02:38
DX: R07.89 Other chest pain (principal); I16.0 Hypertensive urgency; F10.10 Alcohol abuse, uncomplicated; Y90.9 Presence of alcohol in blood, level not specified; Z87.442 Personal history of urinary calculi
CPT/HCPCS: 36415; 71045; 80048; 84484; 85025; 85730; 93005; 99285; A4606; Z7610

== ENCOUNTER 2018-07-18 22:21 | Emergency (ER) | payer OTHER ==
[~2018-07-18] VITALS: Ht 175.3 cm; Wt 79.4 kg
--- NOTE | 2018-07-18 22:30 | NUR ---
BBSELF FROM HOME C/C "DRANK TOO MUCH & NOW I HAVE LEFT SIDED PRESSURE CP NON RADIATING". +N/V,-D. SKIN WNL. -SOB. PT STATES 10 SHOTS OF TEQUILA. PT IS AAOX4. SKIN WNL. PT AMBULATED WITH STEADY GAIT NOTED. BEDSIDE. NO S/S OF ACUTE DISTRESS NOTED. PT PLACED ON TALENT ANALYST AND POX. PT SAFETY AND COMFORT MEASURES IN PLACE. WILL CONTINUE TO MONITOR PT. BEDSIDE FOR [place]
[2018-07-18] MEDS ORDERED: IV NS 0.9% 1,000 ML BAG IV ONE (23:00)
[2018-07-18] MEDS ORDERED: ONDANSETRON HCL/PF 4 MG/2 ML VIAL IVP ONE (23:00)
[2018-07-18] MEDS ORDERED: ONDANSETRON HCL/PF 4 MG/2 ML VIAL ONE (23:12)
--- NOTE | 2018-07-19 00:12 | NUR ---
Patient discharged to home in stable condition. Written and verbal after care instructions given. Patient verbalizes understanding of instruction.IV removed. Catheter intact and site benign. Pressure and 4x4 applied to site. No bleeding noted. PT AMBULATED WITH STEADY GAIT NOTED
[2018-07-19 00:17] VITALS: BP 133/87
== END 2018-07-19 00:18 | disposition home or self-care (01) ==
LOC: ER 22:22
DX: R07.89 Other chest pain (principal); F10.129 Alcohol abuse with intoxication, unspecified; R11.10 Vomiting, unspecified; I10 Essential (primary) hypertension; F12.10 Cannabis abuse, uncomplicated; Y90.9 Presence of alcohol in blood, level not specified; Z87.440 Personal history of urinary (tract) infections
CPT/HCPCS: 71045; 93005; 96361; 96374; 99284; J2405; J7030; A4606; Z7610